=== PATIENT | male | born 1960 | race Caucasian/White ===

== ENCOUNTER → 2017-02-26 | Outpatient (CLI) | payer BC, MEDICARE ==
[~2017-02-26] MED LIST: IOHEXOL 300 MG/ML 100ml INJECTION ONE; NORMAL SALINE 100 ML ONE; SALINE FLUSH 10ml SYRINGE ONE
[2017-02-26 10:03] LABS: BASOPHILS % (AUTO) 0.3 % (0-2); EOSINOPHILS # (AUTO) 0.1 T/MM3 (0-0.5); EOSINOPHILS % (AUTO) 1.7 % (0-4); HCT - HEMATOCRIT 41.5 % (41-53); HGB - HEMOGLOBIN 13.1 GM/DL (13.5-17.5); IMMATURE GRANULOCYTE # (AUTO) 0.02 T/MM3 (0.00-0.03); IMMATURE GRANULOCYTE % (AUTO) 0.3 % (0.0-0.5); LYMPHOCYTES # (AUTO) 2.5 T/MM3 (1-4.8); LYMPHOCYTES % (AUTO) 33.5 % (23-45); MEAN CORPUSCULAR HGB 29.2 UUG (26-34); MEAN CORPUSCULAR HGB CONC(MCHC 31.6 GM/DL (31-37); MEAN CORPUSCULAR VOLUME 92.6 UM3 (80-100); MONOCYTES # (AUTO) 0.6 T/MM3 (0-0.8); MONOCYTES % (AUTO) 7.3 % (0-9.0); NEUTROPHILS #(AUTO)-ABSOLUTE 4.3 T/MM3 (1.8-7.7); NEUTROPHILS % (AUTO) 56.9 % (33-66); RED BLOOD COUNT 4.48 M/MM3 (4.50-5.90); WBC - WHITE BLOOD COUNT 7.6 T/MM3 (4.5-11.0)
[2017-02-26 10:12] LABS: ALBUMIN 4.3 G/DL (3.5-5.0); ALBUMIN/GLOBULIN RATIO 1.3 RATIO (1.1-2.2); ALKALINE PHOSPHATASE 135 U/L (38-126); ALT (SGPT) 51 U/L (21-72); ANION GAP 15 MEQ/L (5-15); AST (SGOT) 32 U/L (17-59); BUN/CREATININE RATIO 11 RATIO (6-26); CALCIUM 9.9 MG/DL (8.4-10.2); CHLORIDE 101 MEQ/L (98-107); CO2 - CARBON DIOXIDE 29 MEQ/L (22-30); GLOMERULAR FILTRATION RATE 78; GLUCOSE 161 MG/DL (75-110); LDH 343 U/L (313-618); POTASSIUM 3.7 MEQ/L (3.6-5); SODIUM 145 MEQ/L (134-144); TOTAL PROTEIN 7.7 G/DL (6.3-8.2)
--- NOTE | 2017-02-26 11:40 | DI ---
Indication: ITS.REASON: GASTROINTESTINAL STROMAL TUMOR PROCEDURE: CT CHEST/ABD/PELVIS WC: Encounter: Subsequent Comparison: CT chest, abdomen and pelvis dated December 08, 2016 Technique: Axial CT images were performed through the chest, abdomen and pelvis after the administration of intravenous contrast. Coronal and sagittal two-dimensional reformats. Automated Exposure Control and Iterative Reconstruction dose reducing techniques were utilized. Contrast: Omnipaque 300 100 mL Findings: Chest: Stable scarring along the minor fissure and in both lower lobes. No pneumonia, pleural effusion or pneumothorax. Mucus or debris in the right mainstem bronchus and trachea. No new pulmonary nodules or masses. Thyroid gland is normal. No axillary or mediastinal adenopathy. Heart size is normal. No pericardial effusion. Abdomen/pelvis: Postoperative changes from prior left partial hepatectomy. No enhancing liver mass or bile duct dilatation. The gallbladder is unremarkable. The spleen, pancreas and adrenal glands are within normal limits. Interval improvement in mild bilateral hydronephrosis. Mild hydroureter bilaterally. Right sided ileal conduit. Prior cystectomy. Left abdominal and colostomy. The sacral collection of fluid and gas with multiple associated surgical clips is decreased in size on today's exam, now measuring 3.8 x 2.2 cm in maximal dimension on axial image #91. There is presacral and induration redemonstrated. This collection also extends towards the left gluteal area on axial images 89 through 99. No evidence of a bowel obstruction. Bone windows are stable without lytic or blastic lesion. Impression: 1. No evidence of metastatic disease in the chest, abdomen or pelvis. 2. Decreasing size of the phlegmonous collection or abscess in the left pelvis. This does not show acute inflammation rim enhancement currently. .
== END ==
LOC: IMA 09:36
PROVIDERS: ATTEND Family Medicine
DX: C49.A0 Gastrointestinal stromal tumor, unspecified site (principal); N13.30 Unspecified hydronephrosis; Z98.890 Other specified postprocedural states
CPT/HCPCS: 36415; 80053; 83615; 85025